=== PATIENT | female | born 1990 | race Caucasian/White ===

== ENCOUNTER 2021-11-18 18:07 | Outpatient (REF) | payer OTHER, SELFPAY | END 2021-11-18 18:08 | disposition home or self-care (01) | LOC: HO.LNP 18:07 | PROVIDERS: Visit Provider Hospitalist | DX: J02.8 Acute pharyngitis due to other specified organisms (principal); B97.89 Other viral agents as the cause of diseases classified elsewhere; Z20.822 Contact with and (suspected) exposure to COVID-19 | CPT/HCPCS: U0003; U0005 ==

== ENCOUNTER → 2022-07-28 08:13 | Outpatient (BNVA) | payer OTHER, SELFPAY | PROVIDERS: Visit Provider Nurse Practitioner Family | DX: G43.109 Migraine with aura, not intractable, without status migrainosus (principal) | CPT/HCPCS: 99212 ==

== ENCOUNTER 2023-06-15 11:30 | Outpatient (AMB) | payer OTHER, SELFPAY ==
--- NOTE | 2023-06-15 11:35 | A.OFFVIS_ITS ---
Intake Vital Signs 06/15/23 11:36 Height 5 ft 2 in Weight 211 lb 4 oz BMI 38.6 BP 124/84 Blood Pressure Location Lt brachial Position Sitting Pulse 79 Pulse Source Pulse Oximeter Pulse Oximetry (%) 98 Oxygen Delivery Method Room Air Intake Visit Reasons: Follow up for Headache - LVM Intake Note: Pt presents as a f/u for headaches. Pt states she is still having the headaches twice a week. Disk Recordist Required: No Allergies No Known Allergies Allergy (Verified 06/15/23 11:39) Medication List - Last Reconciled 06/15/23 by Jessica Urbina, ANGIE fluticasone propionate 50 mcg/actuation 1 spray intranasal BID PRN magnesium oxide 400 mg PO BEDTIME 30 days riboflavin (vitamin B2) 400 mg PO DAILY 30 days sertraline 50 mg PO DAILY ubrogepant (Ubrelvy) 100 mg orally 1 tab at onset of migraine, may repeat in 2 hrs, may take w/ Tylenol PRN; 30 days HPI HPI Comments History of Present Illness Details 33-yr-old female presents for f/u visit. Pt denies any significant interval medical changes. Pt reports that she is having 2 typical migraine days per week, but often feels some sort of headache. She is still having a throbbing headache, a/w right sided facial numbness. Sometimes she is waking up with a headache. She is using Mag and B2. She is using Ubrelvy prn- which is effective. [facility] Medical History ADHD Anxiety and depression Encounter for removal of contraceptive coil from fallopian tube Pulmonary embolism Scoliosis Surgical History Hx of tubal ligation Family History Father Migraine Mother HTN (hypertension) Depression Anxiety Social History (Updated 06/15/23 @ 11:41 by Fadia Vernon CMA) Alcohol intake: never Patient Tobacco Use Status: Never used Tobacco Review of Systems Const All systems reviewed & are unremarkable except as noted in HPI and below Physical Exam Vital Signs: Last Vital Signs Pulse 79 06/15/23 11:36 BP 124/84 06/15/23 11:36 Pulse Ox 98 08/09/23 11:36 Oxygen Delivery Method Room Air 06/15/23 11:36 BMI result Body Mass Index 38.6 Const General: cooperative and no acute distress Orientation/consciousness: patient oriented x3 HEENT Head: Yes normocephalic Resp Effort & Inspection: normal respiratory effort and able to speak in complete sentences Neuro General: patient oriented x3, gait normal and CN's II-XI intact bilaterally Cognition (Neuro): normal cognition Motor exam (neuro): 5/5 motor strength present throughout Psych Appearance: grossly normal Mental Status: mental status grossly normal Speech and movement: Normal speech and movement present Affect: normal affect Attitude: cooperative Thought process: Normal thought process present Thought content: Normal thought content present Insight: Good insight present (Psych) Judgement: Good judgement present (Psych) Assessment & Plan Assessment & Plan (1) Migraine with aura: Code(s): G43.109 - Migraine with aura, not intractable, without status migrainosus Plan Retry Amitriptyline 10mg qhs. Continue Mag and B2- for migraine prevention. Continue Ubelvy to 100mg at onset of migraine, MR in 2 hrs (max of 200mg/day), may take w/ Tylenol. Previous trials- Sumatriptan worsened headache. Rizatripatn. Future considerations- consider alternative preventive migraine tx. f/u in 6 months or sooner prn Medications: New amitriptyline 10 mg PO BEDTIME 30 days 30 tabs 3RF Coding Level of Care Code Est Pt Level 3 (82777) Diagnoses Migraine with aura G43.109
[2023-06-15 11:36] VITALS: BP 124/84; PULSE 79; O2SAT 98; BMI 38.6
== END 2023-06-15 12:24 | disposition home or self-care (01) ==
PROVIDERS: Visit Provider Nurse Practitioner Family
DX: G43.109 Migraine with aura, not intractable, without status migrainosus (principal)
CPT/HCPCS: 99213

== ENCOUNTER → 2023-06-15 11:30 | Outpatient (BNVA) | payer OTHER, SELFPAY | PROVIDERS: Visit Provider Nurse Practitioner Family | DX: G43.109 Migraine with aura, not intractable, without status migrainosus (principal) | CPT/HCPCS: 99212 ==

== ENCOUNTER 2024-07-18 12:52 | Outpatient (AMB) | payer OTHER, SELFPAY ==
--- NOTE | 2024-07-18 13:30 | A.OFFVIS_ITS ---
Vital Signs 07/18/24 13:39 Height 5 ft 2 in Weight 205 lb BMI 37.5 BP 112/82 Blood Pressure Location Rt brachial Position Sitting Intake Visit Reasons: Follow Up Intake Note: Patient presents for follow up. migraines are the same getting them twice a week but headache every day. Allergies No Known Allergies Allergy (Verified 07/18/24 13:41) Medication List - Last Reconciled 07/18/24 by ANGIE Smiley amitriptyline 10 mg PO BEDTIME 30 days fluticasone propionate 50 mcg/actuation 1 spray intranasal BID PRN magnesium oxide 400 mg PO BEDTIME 30 days riboflavin (vitamin B2) 400 mg PO DAILY 30 days sertraline 50 mg PO DAILY ubrogepant (Ubrelvy) 100 mg orally 1 tab at onset of migraine, may repeat in 2 hrs, may take w/ Tylenol PRN; 30 days HPI Comments Details: 34-yr-old female presents for f/u visit. Pt denies any significant interval medical changes. She is having daily right sided headache and 2 more severe migraine days per week. She is complaint w/ Mag and B2. Using Tylenol and Ubrelvy prn. She describes the right sided pulsating headache behind right eye, and temples through the right neck a/w photophobia. Occurring most days, on and off. She describes her migraine as severe right or left sided or occipital region photophobia, phonophobia, nausea, activity intolerance, and sometimes a/w facial numbness. [facility] Medical History (Updated 07/18/24 @ 14:25 by ANGIE Smiley) Scoliosis Pulmonary embolism Anxiety and depression ADHD Encounter for removal of contraceptive coil from fallopian tube Surgical History Hx of tubal ligation Family History Father Migraine Mother HTN (hypertension) Depression Anxiety Social History Alcohol intake: never Patient Tobacco Use Status: Never used Tobacco Physical Exam Vital Signs: Last Vital Signs BP 112/82 07/18/24 13:39 BMI result Body Mass Index 37.5 Const General: cooperative and no acute distress Orientation/consciousness: patient oriented x3 Resp Effort & Inspection: normal respiratory effort and able to speak in complete sentences Neuro General: patient oriented x3 Cranial nerves: Yes CN's II-XII intact bilaterally Cognition (Neuro): normal cognition Psych Appearance: grossly normal Mental Status: mental status grossly normal Speech and movement: Normal speech and movement present Affect: normal affect Attitude: cooperative Assessment & Plan Assessment & Plan (1) Migraine with aura: Code(s): G43.109 - Migraine with aura, not intractable, without status migrainosus Category: Medical (2) Worsening headaches: Code(s): R51.9 - Headache, unspecified Category: Medical (3) Facial numbness: Code(s): R20.0 - Anesthesia of skin Category: Medical Plan Joel MRI w/wo- to assess for underlying etiologies of worsening headaches and facial numbness. For migraine prevention tx: Continue Mag and B2- for migraine prevention. Start Propranolol ER 60mg qhs. Previous trials- Amitriptyline 10mg qhs- caused sleepiness. Future considerations- CGRP MaB, Botox tx. For migraine prevention: Continue Ubrelvy to 100mg at onset of migraine, MR in 2 hrs (max of 200mg/day), may take w/ Tylenol. Previous trials- Sumatriptan worsened headache. Rizatripatn- ineffective. f/u in 6 months or sooner prn Orders: Orders MR head/brain wo/w con Today R20.0 - Anesthesia of skin, R51.9 - Headache, unspecified Coding Level of Care Code Est Pt Level 4 (47822) Diagnoses Migraine with aura G43.109 Worsening headaches R51.9 Facial numbness R20.0
[2024-07-18 13:39] VITALS: BP 112/82; BMI 37.5
== END 2024-07-18 14:34 | disposition home or self-care (01) ==
PROVIDERS: Visit Provider Nurse Practitioner Family
DX: G43.109 Migraine with aura, not intractable, without status migrainosus (principal); R51.9 Headache, unspecified; R20.0 Anesthesia of skin
CPT/HCPCS: 99214

== ENCOUNTER → 2024-07-18 12:52 | Outpatient (BNVA) | payer OTHER, SELFPAY | PROVIDERS: Visit Provider Nurse Practitioner Family | DX: G43.109 Migraine with aura, not intractable, without status migrainosus (principal); R20.0 Anesthesia of skin | CPT/HCPCS: 99212 ==

== ENCOUNTER 2024-09-09 12:53 | Outpatient (REF) | payer OTHER, SELFPAY | END 2024-09-09 12:54 | disposition home or self-care (01) | LOC: HO.MRI 12:53 | PROVIDERS: Visit Provider Nurse Practitioner Family | DX: Z13.89 Encounter for screening for other disorder (principal) ==

== ENCOUNTER 2024-10-10 12:49 | Outpatient (AMB) | payer OTHER, SELFPAY ==
[2024-10-10 12:51] VITALS: BP 118/82; PULSE 70; O2SAT 99; BMI 36.6
--- NOTE | 2024-10-10 12:51 | MHC.OFFVIS ---
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 Accompanied by: Self / Same As Patient Allergies No Known Allergies Allergy (Verified 10/10/24 12:52) Medication List - Last Reconciled 10/10/24 by ANGIE Smiley alprazolam 0.25 mg orally 1 tab 30 minutes prior to MRI, may repeat x's 1; 1 day amitriptyline 10 mg PO BEDTIME 30 days fluticasone propionate 50 mcg/actuation 1 spray intranasal BID PRN magnesium oxide 400 mg PO BEDTIME 30 days riboflavin (vitamin B2) 400 mg PO DAILY 30 days sertraline 50 mg PO DAILY ubrogepant (Ubrelvy) 100 mg orally 1 tab at onset of migraine, may repeat in 2 hrs, may take w/ Tylenol PRN; 30 days HPI Comments Details: 34-yr-old female presents for f/u visit of migraine. Pt denies any significant interval medical changes. She is having daily right sided headache, 3 migraine days per week w/ 2 more severe migraine days per week. She is complaint w/ Mag and B2. She was hesitant to trial Propranolol- as it is for HTN tx. Using Tylenol and Ubrelvy prn. She describes the right sided pulsating headache behind right eye, and temples through the right neck a/w photophobia. Occurring most days, on and off. She describes her migraine as severe right or left sided or occipital region photophobia, phonophobia, nausea, activity intolerance, and sometimes a/w facial numbness. [facility] Medical History (Updated 07/18/24 @ 14:25 by ANGIE Smiley) Scoliosis Pulmonary embolism Anxiety and depression ADHD Encounter for removal of contraceptive coil from fallopian tube Surgical History Hx of tubal ligation Family History Father Migraine Mother HTN (hypertension) Depression Anxiety Social History Alcohol intake: never Patient Tobacco Use Status: Never used Tobacco Physical Exam Vital Signs: Last Vital Signs Pulse 70 10/10/24 12:51 BP 118/82 10/10/24 12:51 Pulse Ox 99 10/10/24 12:51 Oxygen Delivery Method Room Air 10/10/24 12:51 BMI result Body Mass Index 36.6 Const General: cooperative and no acute distress Orientation/consciousness: patient oriented x3 Resp Effort & Inspection: normal respiratory effort and able to speak in complete sentences Neuro General: patient oriented x3 Cranial nerves: Yes CN's II-XII intact bilaterally Cognition (Neuro): normal cognition Psych Appearance: grossly normal Mental Status: mental status grossly normal Speech and movement: Normal speech and movement present Affect: normal affect Attitude: cooperative Assessment & Plan Assessment & Plan (1) Migraine with aura: Code(s): G43.109 - Migraine with aura, not intractable, without status migrainosus Category: Medical (2) Facial numbness: Code(s): R20.0 - Anesthesia of skin Category: Medical Plan Joel MRI w/wo as ordered- to assess for underlying etiologies of worsening headaches and facial numbness. For migraine prevention tx: Hold Propranolol ER 60mg qhs. Continue Mag and B2- for migraine prevention. Try OTC Co-Q 10. Information shared on neuro-modulation migraine tx- pt will review and let us know if she would like to try one. Previous trials- Amitriptyline 10mg qhs- caused sleepiness. Future considerations- CGRP MaB, Botox tx. For migraine prevention: Continue Ubrelvy to 100mg at onset of migraine, MR in 2 hrs (max of 200mg/day), may take w/ Tylenol. Previous trials- Sumatriptan worsened headache. Rizatripatn- ineffective. f/u in 6 months or sooner prn Medications: Refilled riboflavin (vitamin B2) 400 mg PO DAILY 30 tabs 6RF 30 days Discontinued amitriptyline Discontinued Reason: Doctor's Order 10 mg PO BEDTIME 30 days 30 tabs 3RF Coding Level of Care Code Est Pt Level 4 (80529) Diagnoses Migraine with aura G43.109 Facial numbness R20.0
--- OUTSIDE RECORDS SUMMARY | 2024-10-16 19:17 | XMS_ITS | Data Portability ---
Author Organization [facility], [address] Address [address] [place] [address] Assessment No assessment recorded. Plan of Treatment Reminders Order Date Submit Date Provider Last Modified By Organization Details Last Modified Time Details Appointments None recorded. Lab streptococc us group A, culture, throat 2022 023 [facility] ([facility], [address] [place] [address], [place], [address], 3 06:07:42 rapid SARS CoV 2 Ag, QL IA, respiratory specimen 2022 [facility], [address] [place] [address], [phone], 3 08:38:04 rapid strep group A, throat 2022 023 [facility], [address] [place] [address], [phone], 3 08:38:04 Referral None recorded. Procedures None recorded. Surgeries None recorded. Imaging None recorded. Medication Orders amoxicillin 875 mg tablet 2022 023 [facility]acy #[id number], [address] [place], [address], 3 08:43:24 prednisone 20 mg tablet 2022 023 [facility]/Pharmacy #[id number], [address] [place], [address], 3 08:43:25 Allergy Relief (fluticason e) 50 mcg/actuati on nasal spray,suspe nsion 2022 023 [facility]/Pharmacy #[id number], [address] [facility], [place], [address], 08:43:25 Patient TargetsNo targets recorded. Patient Instructions Encounter Date Encounter Id Patient Instructions Last Modified By Organization Details Last Modified Time 03/05/2023 [id number] Discussed potential complications and intervention options with the patient during this visit. Patient was instructed to increase room humidity and eat soft bland foods. Raising the head of the bed, lozenges, and saline nasal spray were also recommended. Patient may take ibuprofen or acetaminophen as needed for pain control. If the issue does not improve in 24-48 hours, patient should return to the clinic for follow-up. You have been prescribed an antibiotic for your bacterial illness. While antibiotics are sometimes necessary, they can have a negative impact upon the healthy bacteria within your body. This can result in diarrhea/loose stools and yeast infections. By taking probiotics during the course of your prescription, you can lessen the probability of these undesirable side effects. Probiotics can be purchased [id number] at your pharmacy in the form of capsules or gummies. They are also found naturally in yogurt with live cultures. Mix salt into a quarter-glass of warm water and stir until no more salt will dissolve. Gargle and spit out the salt water mixture one mouthful at a time until the glass is empty. Repeat 4 times daily. Hand hygiene is a grubbs measure for preventing spread to others, especially after coughing or sneezing and before preparing foods or eating, and we remind all patients of its importance. Please discard of your current tooth brush and get a new one after being on the antibiotic for 3-4 days to prevent reinfection. You are considered contagious until you have the antibiotic for 24 hours. We have sent out for lab results, typically take 3-5 days to return. Not available 03/05/2023 08:43:19 If you test positive for COVID-19, stay home for at least 5 days and isolate from others in your home. You are likely most infectious during these first 5 days. Wear a high-quality mask if you must be around others at home and in public. Do not go places where you are unable to wear a mask. For travel guidance, see CDC? s Travel webpage. Do not travel. Stay home and separate from others as much as possible. Use a separate bathroom, if possible. Take steps to improve ventilation at home, if possible. Don? t share personal household items, like cups, towels, and utensils. Monitor your symptoms. If you have an emergency warning sign (like trouble breathing), seek emergency medical care immediately. If you had symptoms and: Your symptoms are improving You may end isolation after day 5 if: You are fever-free for 24 hours (without the use of fever-reducing medication). Your symptoms are not improving Continue to isolate until: You are fever-free for 24 hours (without the use of fever-reducing medication). Your symptoms are improving. Regardless of when you end isolation Until at least day 11: Avoid being around people who are more likely to get very sick from COVID-19. Remember to wear a high-quality mask when indoors around others at home and in public. Do not go places where you are unable to wear a mask until you are able to discontinue masking (see below). For travel guidance, see CDC? s Travel webpage. Not available 03/05/2023 08:26:49 Reason for Referral None Reported. Results Created Date Observation Date Name Description Value Unit Range Abnormal Flag Note LastModifiedBy Organization Detail LastModifiedTime 03/05/2003/08/2023 BETA STREP GP A CULTU RE beta strep gp A culture NEGATI VE Refer ence Range : Negat elvis Not Available [facility] ([facility]) [address] [facility], [place], [address], 03/08/2023 06:07:42 03/05/2003/05/2023 rapid SARS CoV 2 Ag, QL IA, respi rator y speci men Unknown Analyte Normal =Negat elvis Not Available [address] [place] [address], [place], [phone], 03/05/2023 08:17:54 03/05/20 23 03/05/2023 rapid SARS CoV 2 Ag, QL IA, respi rator y speci men Unknown Analyte negati ve Not Available [address] [place] [address], [phone], 03/05/2023 08:17:54 03/05/20 23 03/05/2023 rapid strep group A, throa t Unknown Analyte Normal = Negati ve Not Available [address] [place] [address], [phone], 03/05/2023 08:18:00 03/05/20 23 03/05/2023 rapid strep group A, throa t Unknown Analyte negati ve Not Available [address] [place] [address], [phone], 03/05/2023 08:18:00 Result Notes None recorded. Problems No Known Problems Medical Equipment None Reported. Allergies No known drug allergies Medications Name Sig Start Date Stop Date Status Note LastModified by Organization Details LastModified Time venlafaxine ER 75 mg capsule,ext ended release 24 hr TAKE 1 CAPSULE BY MOUTH EVERY MORNING 03/05 completed Not Available Not Available Not Available meloxicam 15 mg tablet TAKE 1 TABLET BY MOUTH EVERY DAY NEEDED FOR PAIN 03/05 completed Not Available Not Available Not Available prednisone 20 mg tablet Take 2 tablets every day by oral route in the morning for 3 days. 2022 active Not Available Not Available Not Avai lable rizatriptan 10 mg tablet PLEASE SEE ATTACHED FOR DETAILED DIRECTION S 03/05 completed Not Available Not Available Not Available valacyclovi r 500 mg tablet TAKE 1 TABLET BY MOUTH TWICE A DAY FOR 7 DAYS 03/05 completed Not Available Not Available Not Available amoxicillin 875 mg tablet Take 1 tablet every 12 hours by oral route with meals for 10 days. 2022 active Not Available Not Available Not Avai lable magnesium oxide 400 mg (241.3 mg magnesium) tablet TAKE 1 TABLET BY MOUTH AT BEDTIME DAILY FOR 30 DAYS active Not Available Not Available No t Available meclizine 25 mg tablet TAKE 1 TABLET BY MOUTH THREE TIMES A DAY NEEDED FOR DIZZINESS 03/05 completed Not Available Not Available Not Available sertraline 25 mg tablet TAKE 1 TABLET BY MOUTH EVERY DAY 03/05 completed Not Available Not Available Not Available fluticasone propionate 50 mcg/actuati on nasal spray,suspe nsion SPRAY 1 SPRAY NASALLY EVERY DAY DIRECTED FOR 30 DAYS active Not Available Not Available No t Available sertraline 50 mg tablet TAKE 1 TABLET BY MOUTH EVERY DAY 03/05 completed Not Available Not Available Not Available cyclobenzap rine 5 mg tablet TAKE 1 TABLET BY MOUTH 3 TIMES DAILY NEEDED FOR MUSCLE SPASMS FOR UP TO 10 DAYS. 03/05 completed Not Available Not Available Not Available Eliquis 2.5 mg tablet TAKE 1 TABLET BY MOUTH EVERY 12 HOURS. 03/05 completed Not Available Not Available Not Available riboflavin (vitamin B2) 400 mg tablet TAKE 1 TABLET (400 MG) ORALLY DAILY FOR 30 DAYS 03/05 completed Not Available Not Available Not Available Ubrelvy 100 mg tablet TAKE 1 TABLET BY MOUTH AT ONSET OF MIGRAINE. MAY REPEAT IN 2 HRS. MAY TAKE WITH TYLENOL NEEDED 03/05 completed Not Available Not Available Not Available Ubrelvy 50 mg tablet TAKE 1 TAB NEEDED FOR MIGRAINE - MAXIMUM 2 A DAY ORAL NEEDED 03/05 completed Not Available Not Available Not Available Vitals Date Recorded Body height Body mass index (BMI) Body weight Respiratory rate Oxygen saturation Oxygen saturation in Arterial blood by Pulse oximetry Heart rate Body temperature Systolic blood pressure Diastolic blood pressure Provider Name and Address Organization Details Last Updated DateTime 3 157.48 cm 39.3 kg/m2 94735.3 6 g 19 /min 99 % 99 % 60 /min 97.8 [degF] 112 mm[Hg] 75 mm[Hg] RD [facility] 08:18:53 Social History Question Answer Notes LastModified by Organizat ion Details LastModified Time Tobacco Smoking Status Never Smoker [facility] 03/05/2023 08:17:43 What Is Your Level Of Alcohol Consumption? None [email or web address] Information not available 03/05/2023 Do You Use Any Illicit Or Recreational Drugs? No Information not available 03/05/2023 Have You Recently Traveled Abroad? No [email or web address] Information not available 03/05/2023 Do You Or Have You Ever Used Any Other Forms Of Tobacco Or Nicotine? No [email or web address] Information not available 03/05/2023 Sex: Unknown Functional Status None recorded. Mental Status None recorded. Family History Relationship Description Onset Age of this Age Resolved Age Notes LastModified by Organization Details LastModified Time Father No current problems or disability [email or web address] Not available 03/05 08:17:33 Mother No current problems or disability Not available 03/05 08:17:33 Medical History No medical history recorded. Gynecological HistoryNo gynecological history recorded. Obstetrics History GPAL:G 0 P 0 0 0 0 Past Encounters Encounter ID Performer Location Encounter Start Date Encounter Closed Date Diagnosis/Indication Diagnosis SNOMED-CT Code Diagnosis ICD10 Code [id number] [address] [address] 04/30/2022 13:46:44 04/30/2022 14:40:05 [id number] [address] [place] [address] 01/28/2021 08:16:51 01/28/2021 11:00:08 [id number] [address] [place] [address] 12/04/2019 08:50:36 12/04/2019 09:55:12 [id number] [address] [place] [address] 06/10/2021 08:02:11 06/10/2021 10:00:49 [id number] Jose Ramon Garcia NP [address] [place] [address] 03/05/2023 08:05:03 03/05/2023 08:57:47 Exposure to SARS-CoV-2 668397375 Z20.822 Streptococ brionna sore throat 10208014 J02.0 Health Concerns Section Related Observation LastModified by Organization Detai ls LastModified Time None Recorded Concern Status LastModified by Organization Details LastModified Time None Recorded Advance Directives Directive None Recorded Payers Encounter Date Sequence Insurance Name Policy Number Policy Carlos Covered Member ID Carlos Member ID Guarantor Name 12/04/2019 2 [place] Amaree Harris [id number] Amaree Harris 01/28/2021 1 [facility] (MEDICAID REPLACEMENT - HMO) [employer] Amaree Harris [id number] Amaree Harris 01/28/2021 2 [place] Amaree Harris [id number] Amaree Harris 06/10/2021 1 [facility] (MEDICAID REPLACEMENT - HMO) [employer] Amaree Harris [id number] Amaree Harris 06/10/2021 2 [place] Amaree Harris [id number] Amaree Harris 03/05/2023 1 [facility] (MEDICAID REPLACEMENT - HMO) [employer] Amaree Harris [id number] Amaree Harris 03/05/2023 2 [place] Amaree Harris [id number] Amaree Harris Notes Date Note Type Note Provider Name and Address Organization Details Recorded Time 3 text/html Sore throatReported bypatient.Source of patient informationInformation obtained from patient; Patient arrived at Urgent Care ambulatory; learning styles: auditory Location:throat Severity:mild Quality:sharp; burning Onset/Timin days Associated Symptoms:no sputum production; no shortness of breath; no wheezing; no vomiting; no nausea;sore throat;hoarseness;coughing; sinus pain/ congestion Context:no foreign travel; non-smoker;sick contact Modifying Factors:exposed to Strep non household Jose Ramon AIMEE Garcia [address] [place], [address], [place] - [facility] 03/05/2023 08:44:32 OBGyn Episode No OBEpisode recorded.
== END 2024-10-10 13:43 | disposition home or self-care (01) ==
PROVIDERS: Visit Provider Nurse Practitioner Family
DX: G43.109 Migraine with aura, not intractable, without status migrainosus (principal); R20.0 Anesthesia of skin
CPT/HCPCS: 99214

== ENCOUNTER → 2024-10-10 12:49 | Outpatient (BNVA) | payer OTHER, SELFPAY | PROVIDERS: Visit Provider Nurse Practitioner Family | DX: G43.109 Migraine with aura, not intractable, without status migrainosus (principal); R20.0 Anesthesia of skin | CPT/HCPCS: 99212 ==

== ENCOUNTER 2024-10-14 13:52 | Outpatient (REF) | payer OTHER, SELFPAY | END 2024-10-14 13:53 | disposition home or self-care (01) | LOC: HO.MRI 13:52 | PROVIDERS: Visit Provider Nurse Practitioner Family | DX: Z13.89 Encounter for screening for other disorder (principal) ==

== ENCOUNTER 2025-05-03 08:06 | Outpatient (AMB) | payer OTHER, SELFPAY ==
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
--- NOTE | 2025-05-03 12:25 | A.OFFVIS_ITS ---
Vital Signs 05/03/25 12:25 Height 5 ft 2 in Intake Visit Reasons: [place] Physical Therapy Coordinator Required: No Accompanied by: Self / Same As Patient Allergies No Known Allergies Allergy (Verified 05/03/25 12:26) Medication List - Last Reconciled 05/03/25 by ANGIE Smiley alprazolam 0.25 mg orally 1 tab 30 minutes prior to MRI, may repeat x's 1; 1 day fluticasone propionate 50 mcg/actuation 1 spray intranasal BID PRN magnesium oxide 400 mg PO BEDTIME 30 days propranolol 10 mg PO BID 30 days riboflavin (vitamin B2) 400 mg PO DAILY 30 days sertraline 50 mg PO DAILY ubrogepant (Ubrelvy) 100 mg orally 1 tab at onset of migraine, may repeat in 2 hrs, may take w/ Tylenol PRN; 30 days HPI Comments Details: 35-yr-old female presents for televideo visit to complete [facility] paperwork for her migraine symptoms. Patient request [facility] paperwork, as she is needing to leave work or call out of work due to her migraine attacks. She has never completed [facility] paperwork before she is requesting coverage for 1 absence per week, lasting 1-2 days. Two days when more severe. She is continuing to have her daily headache, but again becomes more severe 2-3 days per week. She is currently taking her magnesium and vitamin B2. She was previously hesitant to try propranolol ER due to its hypotensive effects. However, today upon review of migraine preventative strategies, patient is agreeable to try low-dose propranolol IR. Ubrelvy is effective, but she may wake up the next day with an ongoing migraine. She describes the right sided pulsating headache behind right eye, and temples through the right neck a/w photophobia. Occurring most days, on and off. She describes her migraine as severe right or left sided or occipital region photophobia, phonophobia, nausea, activity intolerance, and sometimes a/w facial numbness. [facility] Medical History (Updated 05/03/25 @ 15:05 by ANGIE Smiley) Scoliosis Pulmonary embolism Anxiety and depression ADHD Encounter for removal of contraceptive coil from fallopian tube Surgical History Hx of tubal ligation Family History Father Migraine Mother HTN (hypertension) Depression Anxiety Social History Alcohol intake: never Patient Tobacco Use Status: Never used Tobacco Physical Exam Const General: cooperative and no acute distress Orientation/consciousness: patient oriented x3 Resp Effort & Inspection: normal respiratory effort and able to speak in complete sentences Neuro General: patient oriented x3 Cognition (Neuro): normal cognition Psych Appearance: grossly normal Mental Status: mental status grossly normal Speech and movement: Normal speech and movement present Affect: normal affect Attitude: cooperative Telehealth Telehealth Telehealth Platform: [employer] Location of provider rendering services: practice address Location of patient: address on file Patient Identification confirmed using: Name, : Yes Telehealth method: video Patient verbally consented to treatment: Yes Patient verbally consented to billing insurance company: Yes Patient informed of any privacy concerns related to visit: Yes Minutes spent on Phone/Video with Pt.: 23 Assessment & Plan Assessment & Plan (1) Migraine with aura: Code(s): G43.109 - Migraine with aura, not intractable, without status migrainosus Category: Medical Qualifiers: Status migrainosus presence: without status migrainosus Intractability: not intractable Qualified Code(s): G43.109 - Migraine with aura, not intractable, without status migrainosus (2) Facial numbness: Code(s): R20.0 - Anesthesia of skin Category: Medical (3) Headache: Comment: Right-sided headache associated with photophobia- likely milder migraine Code(s): R51.9 - Headache, unspecified Category: Medical Plan Reviewed interval Joel MRI w/wo- unremarkable FMLA paperwork completed- patient will pick it up from our office. For migraine prevention tx: Start Propranolol IR 10 mg twice a day. Potential side effects include but are not limited to fatigue, lightheadedness, low blood pressure, low heart rate, asthma/respiratory disease exacerbation, weight gain, hair loss, sexual dysf unction. Continue Mag and B2- for migraine prevention. Could also consider trying OTC Co-Q 10. Information shared on neuro-modulation migraine tx- pt will review and let us know if she would like to try one. Previous trials- Amitriptyline 10mg qhs- caused sleepiness. Future considerations- CGRP MaB, Botox tx. For migraine prevention: Continue Ubrelvy to 100mg at onset of migraine, MR in 2 hrs (max of 200mg/day), may take w/ Tylenol. Previous trials- Sumatriptan worsened headache. Rizatripatn- ineffective. Follow-up as scheduled. Medications: New propranolol 10 mg PO BID 60 tabs 1RF 30 days Coding Level of Care Code Tele Est Pt Level 4 (71407) Diagnoses Migraine with aura and without status migrainosus, not intractable G43.109 Status migrainosus presence: without status migrainosus Intractability: not intractable Facial numbness R20.0 Headache R51.9
== END 2025-05-03 13:24 | disposition home or self-care (01) ==
PROVIDERS: Visit Provider Nurse Practitioner Family
DX: G43.109 Migraine with aura, not intractable, without status migrainosus (principal); R20.0 Anesthesia of skin; R51.9 Headache, unspecified
CPT/HCPCS: 99214

== ENCOUNTER 2025-09-04 14:49 | Outpatient (AMB) | payer OTHER, SELFPAY ==
[2025-09-04 15:05] VITALS: BP 100/78; PULSE 76; O2SAT 99; BMI 36.8
--- NOTE | 2025-09-04 15:05 | A.OFFVIS_ITS ---
Vital Signs 09/04/25 15:05 Height 5 ft 2 in Weight 201 lb BMI 36.8 BP 100/78 Blood Pressure Location Lt brachial Position Standing Pulse 76 Pulse Source Pulse Oximeter Pulse Oximetry (%) 99 Oxygen Delivery Method Room Air Intake Visit Reasons: Follow Up 6mo Planning Intern Required: No Accompanied by: Self / Same As Patient Allergies No Known Allergies Allergy (Verified 09/04/25 15:11) Medication List - Last Reconciled 09/04/25 by ANGIE Smiley alprazolam 0.25 mg orally 1 tab 30 minutes prior to MRI, may repeat x's 1; 1 day fluticasone propionate 50 mcg/actuation 1 spray intranasal BID PRN magnesium oxide 400 mg PO BEDTIME 30 days propranolol 10 mg PO BID 90 days riboflavin (vitamin B2) 400 mg PO DAILY 30 days sertraline 50 mg PO DAILY ubrogepant (Ubrelvy) 100 mg orally 1 tab at onset of migraine, may repeat in 2 hrs, may take w/ Tylenol PRN; 30 days HPI Comments Details: 35-yr-old female presents for follow-up for migraine. She reports she is having 2 migraine attacks per week, which can be associated with significant nausea. She will be quite photophobic. She is currently taking her magnesium and vitamin B2. She expresses frustration that others do not understand the severity of migraine headache attacks. She is curious about preventative migraine injections and Botox. She was previously hesitant to try propranolol ER or IR due to its hypotensive effects. However, today upon review of migraine preventative strategies, patient is agreeable to try low-dose propranolol IR. Ubrelvy is effective, but may make her a bit nauseous or sleepy. She notes she previously an order for ondansetron, but believes it is . Baseline right-sided migraine attack: right sided pulsating headache behind right eye, and temples through the right neck a/w photophobia. Baseline occipital migraine attack: severe right or left sided or occipital region photophobia, phonophobia, nausea, activity intolerance, and sometimes a/w facial numbness. Family history: Father has migraine, an aunt has migraine. [facility] Medical History (Updated 09/04/25 @ 17:19 by ANGIE Smiley) Scoliosis Pulmonary embolism Anxiety and depression ADHD Encounter for removal of contraceptive coil from fallopian tube Surgical History Hx of tubal ligation Family History Father Migraine Mother HTN (hypertension) Depression Anxiety Social History Alcohol intake: never Patient Tobacco Use Status: Never used Tobacco Physical Exam Vital Signs: Last Vital Signs Pulse 76 09/04/25 15:05 BP 100/78 09/04/25 15:05 Pulse Ox 99 09/04/25 15:05 Oxygen Delivery Method Room Air 09/04/25 15:05 BMI result Body Mass Index 36.8 Const General: cooperative and no acute distress Orientation/consciousness: patient oriented x3 Resp Effort & Inspection: normal respiratory effort and able to speak in complete sentences Neuro General: patient oriented x3 Cognition (Neuro): normal cognition Psych Appearance: grossly normal Mental Status: mental status grossly normal Speech and movement: Normal speech and movement present Affect: normal affect Attitude: cooperative Assessment & Plan Assessment & Plan (1) Migraine with aura: Code(s): G43.109 - Migraine with aura, not intractable, without status migrainosus Category: Medical Qualifiers: Status migrainosus presence: without status migrainosus Intractability: not intractable Qualified Code(s): G43.109 - Migraine with aura, not intractable, without status migrainosus (2) Headache: Comment: Right-sided headache associated with photophobia- likely milder migraine Code(s): R51.9 - Headache, unspecified Category: Medical Qualifiers: Headache type: unspecified (3) Photophobia: Code(s): H53.149 - Visual discomfort, unspecified Category: Medical (4) Nausea: Code(s): R11.0 - Nausea Category: Medical Plan We reviewed previous Joel MRI w/wo- unremarkable For general headache prevention: Patient states she will trial/propranolol and began tracking her headaches and migraine days times 1-2 months, and update us with headache frequency at that time. Consider trying GreenLight bulbs or blue light blocking glasses to reduce photophobia. For migraine prevention tx: Patient is again advised to try Propranolol IR 10 mg twice a day. * Potential side effects include but are not limited to fatigue, lightheadedness, low blood pressure, low heart rate, asthma/respiratory disease exacerbation, weight gain, hair loss, sexual dysfunction. Continue Mag and B2- for migraine prevention. Could also consider trying OTC Co-Q 10. Information shared on neuro-modulation migraine tx- pt will review and let us know if she would like to try one. Previous trials- Amitriptyline 10mg qhs- caused sleepiness. Future considerations- CGRP MaB, Botox tx. For migraine prevention: Continue Ubrelvy to 100mg at onset of migraine, MR in 2 hrs (max of 200mg/day), may take w/ Tylenol. Resume ondansetron ODT 4 mg every 4 hours p.r.n. nausea and/or vomiting Previous trials- Sumatriptan worsened headache. Rizatripatn- ineffective. Workplace accommodations: Current FMLA in place Pt to follow-up in 6 months or sooner prn. Medications: New ondansetron 4 mg PO Q4H PRN 30 tabs 2RF nausea and vomiting 30 days Coding Level of Care Code Est Pt Level 4 (69146) Diagnoses Migraine with aura and without status migrainosus, not intractable G43.109 Status migrainosus presence: without status migrainosus Intractability: not intractable Headache R51.9 Headache type: unspecified Photophobia H53.149 Nausea R11.0
--- OUTSIDE RECORDS SUMMARY | 2025-09-04 19:13 | XMS_ITS | Encounter Summary ---
Author Organization [facility] Address [address] [place] [address] Care Team Providers Care Real Estate Sales Supervisor Name Role Phone Chuy Morrow MD Primary Care Provider [phone] Encounter Details Date Type Department Care Team ([facility] Contact Info) Description 08/15/2025 Results Follow-Up [address] [phone] Jenni Ferris PA [address] [place] [address] Social History Tobacco Use Types Packs/Day Years Used Date Smoking Tobacco: Never Smokeless Tobacco: Never Alcohol Use Standard Drinks/Week Comments No 0 (1 standard drink = 0.6 oz pur e alcohol) Interpersonal Safety Answer Date Record ed Physical Abuse Unrecognized value 09/24/2024 Verbal Abuse Unrecognized value 09/24/2024 Comments No Sex and Gender Information Value Date Recorded Sex Assigned at Female 06/12/2025 8:41 AM EDT Legal Sex Female 1:34 AM EST Gender Identity Female 06/12/2025 8:41 AM EDT Sexual Orientation Straight 06/12/2025 8: 41 AM EDT documented as of this encounter Plan of Treatment Upcoming Encounters Date Type Department Care Team (Late Contact Info) Description 10/28/2025 2:30 PM EST Office Visit [address] [phone] Jenni Ferris PA [address] [place] [address] 10/29/2025 12:30 PM EST Ancillary Procedure [facility] [address] [place] [address] documented as of this encounter Visit Diagnoses Diagnosis Liver cyst- Primary Other specified disorders of liver documented in this encounter Care Teams Real Estate Sales Supervisor Relationship Specialty Start Date End Date Chuy Morrow MD [address] [place] [address] PCP - General Internal Medicine 04/28/22 documented as of this encounter
--- OUTSIDE RECORDS SUMMARY | 2025-09-04 19:13 | XMS_ITS | Data Portability ---
Author Organization [facility], [address] Address [address] [place] [address] Assessment No assessment recorded. Plan of Treatment Reminders Order Date Submit Date Provider Last Modified By Organization Details Last Modified Time Details Appointments None recorded. Lab streptococc us group A, culture, throat 2022 023 [place] [place] [facility] ([facility], [address] [place] [address], [place], [address], 3 06:07:42 rapid SARS CoV 2 Ag, QL IA, respiratory specimen [facility], [address] [place] [address], [phone], 3 08:38:04 rapid strep group A, throat 2022 [facility], [address] [place] [address], [phone], 3 08:38:04 Referral None recorded. Procedures None recorded. Surgeries None recorded. Imaging None recorded. Medication Orders amoxicillin 875 mg tablet 2022 023 [facility] #[id number], [address] [place], [address], 3 08:43:24 prednisone 20 mg tablet 2022 023 [facility]armacy #[id number], [address] [place], [address], 08:43:25 Allergy Relief (fluticason e) 50 mcg/actuati on nasal spray,suspe nsion 2022 023 [facility]armacy #[id number], [address] [facility], [place], [address], 08:43:25 Patient TargetsNo targets recorded. Patient Instructions Encounter Date Encounter Id Patient Instructions Last Modified By Organization Details Last Modified Time 03/05/2023 [id number] Discussed potential complications and intervention options with [...] undesirable side effects. Probiotics can be purchased [id number] at your pharmacy in the form of [...] wear a mask. For travel guidance, see CDC s Travel webpage. Do not travel. Stay home and separate from others as much as possible. Use a separate bathroom, if possible. Take steps to improve ventilation at home, if possible. Don t share personal household items, like cups, [...] masking (see below). For travel guidance, see CDC s Travel webpage. Not available 03/05/2023 08:26:49 Reason for Referral None Reported. Results Created Date Observation Date Name Description Value Unit Range Abnormal Flag Note LastModifiedBy Organization Detail LastModifiedTime 03/05/2003/08/2023 BETA STREP GP A CULTU RE beta strep gp A culture NEGATI VE Refer ence Range : Negat elvis Not Available [facility] ([facility]) [address] [facility], [place], [address], 03/08/2023 06:07:42 03/05/2003/05/2023 rapid SARS CoV 2 Ag, QL IA, respi rator y speci men Unknown Analyte Normal =Negat elvis Not Available [address] [place] [address], [place], [phone], 03/05/2023 08:17:54 03/05/2003/05/2023 rapid SARS CoV 2 Ag, QL IA, respi rator y speci men Unknown Analyte negati ve Not Available [address] [place] [address], [phone], 03/05/2023 08:17:54 03/05/20 23 03/05/2023 rapid strep group A, throa t Unknown Analyte Normal = Negati ve Not Available [address] [place] [address], [phone], 03/05/2023 08:18:00 03/05/20 23 03/05/2023 rapid strep group A, throa t Unknown Analyte negati ve Not Available [address] [place] [address], [phone], 03/05/2023 08:18:00 Result Notes None recorded. Problems [...] height Body mass index (BMI) Body weight Pain severity - 0-10 verbal numeric rating [Score] - Reported Respiratory rate Oxygen saturation Oxygen saturation in Arterial blood by Pulse oximetry Heart rate Body temperature Systolic And Diastolic Provider Name and Address Organization Details Last Updated DateTime 3 157.48 cm 39.3 kg/m2 60657.3 6 g 7 19 /min 99 % 99 % 60 /min 97.8 [degF] 112/75 mm[Hg] RD BISH[facility] [employer] 08:18:53 Social History Question Answer Notes LastModified by [employer] Details LastModified Time Tobacco Smoking Status Never Smoker DARIO Morales [facility] 03/05/2023 08:17:43 Have You Recently Traveled Abroad? No [email or web address] Information not available 03/05/2023 Sex: Unknown Functional Status Question Answer Note LastModified by Organizat ion Details LastModified Time Do you use any illicit or recreational drugs? No [email or web address] Information not available 03/05/2023 Do you or have you ever used any other forms of tobacco or nicotine? No [email or web address] Information not available 03/05/2023 What is your level of alcohol consumption? None [email or web address] Information not available 03/05/2023 Mental Status None recorded. Family History Relationship Description Onset Age of this Age Resolved Age Notes LastModified by Organization Details LastModified Time Father No current problems or disability [email or web address] Not available 03/05 08:17:33 Mother No current problems or disability Not available 03/05 08:17:33 Medical History No medical history recorded. Gynecological HistoryNo gynecological history recorded. Obstetrics History GPAL:G 0 P 0 0 0 0 Past Encounters Encounter ID Performer Location Encounter Start Date Encounter Closed Date Diagnosis/Indication Diagnosis SNOMED-CT Code Diagnosis ICD10 Code Diagnosis IMO Codes Diagnosis Note [id number] [address] [address] [address] 04/30/2022 13:46:44 04/30/2022 14:40:05 [id number] [address] [address] [place] [address] 01/28/2021 08:16:51 01/28/2021 11:00:08 [id number] [address] [address] [place] [address] 12/04/2019 08:50:36 12/04/2019 09:55:12 [id number] [address] [address] [place] [address] 06/10/2021 08:02:11 06/10/2021 10:00:49 [id number] Jose Ramon Garcia NP [address] [place] [address] 03/05/2023 08:05:03 03/05/2023 08:57:47 Exposure to SARS-CoV-2 025035696 Z20.822 Streptococ brionna sore throat 95621950 J02.0 Health Concerns Section Related Observation LastModified by Organization Detai ls LastModified Time None Recorded Concern Status LastModified by Organization Details LastModified Time None Recorded Advance Directives Directive None Recorded Payers Insurance Date Sequence Insurance Name Policy Number Policy Carlos Covered Member ID Carlos Member ID Guarantor Name 03/05/2023 1 [facility] PL[facility] - [facility] (MEDICAID REPLACEMENT - HMO) DILLANY[place]O Amaree Harris [id number] Amaree Harris 03/05/2023 2 [place] [facility] Amaree Harris [id number] Amaree Harris Notes Date Note Type Note Provider Name and Address Organization Details Recorded Time 03/05/2023 text/html Sore throatRepor yi by PatientSore ThroatFor associated symptoms, patient reportssore throat,hoarseness,cough ing, andsinus pain/ congestionbut reportsno sputum production,no shortness of breath,no wheezing,no vomiting, andno nausea. For context, patient reportssick contactbut reportsno foreign travelandnon-smoker. For modifying factors, patient reportsexposed to strep non household. For source of patient information, patient reportsinformation obtained from patient,patient arrived at urgent care ambulatory, andlearning styles: auditory. For location, patient reportsthroat. For severity, patient reportsmild. For quality, patient reportssharpandburning. For onset/timing, patient reports3 days. Jose Ramon Garcia NP [address] [place], [address], [place] - [facility] 03/05/2023 08:44:32 OBGyn Episode No OBEpisode recorded.
--- OUTSIDE RECORDS SUMMARY | 2025-09-04 19:13 | XMS_ITS | Clinical Summary ---
[facility] Organization [facility] Address [address] [place] [address] Care Team Providers Care Boat Rental Clerk Name Role Phone Alexandra Ibrahim MD Primary Care Provider [phone] Allergies No known active allergies Medications Medication Sig Dispensed Refills Start Date End Date Status magnesium oxide 400 (241.3 Mg) MG TABS tablet Take 400 mg by mouth 2 (two) times a day. 0 Active sertraline (ZOLOFT) 25 MG tablet Take 25 mg by mouth daily. 0 Active Eliquis 2.5 MG TABS tablet TAKE 1 TABLET BY MOUTH EVERY 12 HOURS. 180 tablet 2 07/26/2022 Active Active Problems No known active problems Family History Medical History Relation Name Comments No Sig Med Hx Father Clotting disorder Maternal Aunt 1 Cancer Maternal Aunt 2 Breast cance r No Sig Med Hx Mother No Sig Med Hx Sister 1 No Sig Med Hx Sister 2 Relation Name Status Comments Father Alive Maternal Aunt 1 Maternal Aunt 2 Mother Alive Sister 1 Alive Sister 2 Alive Social History Tobacco Use Types Packs/Day Years Used Date Smoking Tobacco: Never Smokeless Tobacco: Never Alcohol Use Standard Drinks/Week Comments No 0 (1 standard drink = 0.6 oz pur e alcohol) Sex and Gender Information Value Date Recorded Sex Assigned at Not on file Gender Identity Not on file Sexual Orientation Not on file Job Start Date Occupation Industry Not on file Not on file Not on file Last Filed Vital Signs Vital Sign Reading Time Taken Comments Blood Pressure 119/80 08/24/2022 1:09 PM EDT Pulse 65 08/24/2022 1:09 PM EDT Temperature 36.1 C (96.9 F) 08/24/2022 1:09 PM EDT Respiratory Rate - - Oxygen Saturation 100% 08/24/2022 1:09 PM EDT Inhaled Oxygen Concentration - - Weight 96.2 kg (212 lb) 08/24/2022 1:09 PM EDT Height 157.5 cm (5' 2 ) 08/24/2022 1:09 PM EDT Body Mass Index 38.78 08/24/2022 1:09 PM EDT Plan of Treatment Health Maintenance Due Date Last Done Comments Hepatitis C Screening 1990 Depression Screening 2002 Preventative Health Evaluation 2008 Cervical Cancer Screening (Pap Smear) 2011 COVID-19 Vaccine ( season) 2025 07/29/2021, 06/02/2021 Influenza Vaccine (#1) 2025 , 07/24/2020, 07/25/2018, Additional history exists DTap / Tdap / Td (8 - Td or Tdap) 11/21/2025 11/21/2015, 04/01/2010, 06/07/1996, Additional history exists Hepatitis B Vaccines Completed 07/08/1997, 09/07/1996, 06/07/1996 Pneumococcal Vaccine Aged Out No long er eligible based on patient's age to complete this topic RSV Ped < 20 months Aged Out No longe r eligible based on patient's age to complete this topic Care Teams Boat Rental Clerk Relationship Specialty Start Date End Date Alexandra Ibrahim MD PCP - General Internal Medicine 12/18/20
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
== END 2025-09-04 15:51 | disposition home or self-care (01) ==
LOC: HO.HSMS 14:50
PROVIDERS: Visit Provider Nurse Practitioner Family
DX: G43.109 Migraine with aura, not intractable, without status migrainosus (principal); R51.9 Headache, unspecified; H53.149 Visual discomfort, unspecified; R11.0 Nausea
CPT/HCPCS: 99214

== ENCOUNTER → 2025-09-04 14:49 | Outpatient (BNVA) | payer OTHER, SELFPAY | PROVIDERS: Visit Provider Nurse Practitioner Family | DX: G43.109 Migraine with aura, not intractable, without status migrainosus (principal); H53.143 Visual discomfort, bilateral; R11.0 Nausea | CPT/HCPCS: 99212 ==